=== PATIENT | female | born 1990 ===

== ENCOUNTER → 2022-08-18 11:26 | Outpatient (CLI) | payer BC, SELFPAY ==
--- NOTE | ~2022-08-18 | US_ITS ---
EXAMINATION: US OB /maternal detail DATE: 08/18/2022 12:20 INDICATION: anatomic survey. TECHNIQUE: Real-time ultrasound of the pelvis was performed. COMPARISON: None. FINDINGS: There is a single living fetus in breech presentation. The placenta is anterior, 7.0 cm from the cer vix. heart rate is 147 beats per minute (bpm). The cervical length is 3.7 cm on transabdominal images, which is normal. The amniotic fluid volume is subjectively normal. The following biometric data were obtained: Biparietal diameter (BPD): 4.4 cm; head circumference (HC): 16.7 cm; abdominal circumference (AC): 14 .5 cm; femur length (FL): 2.8 cm. These measurements are concordant. Estimated weight is 284 g +/- 43 g, which correlates with the 46th percentile when 01/10/23 is u sed as estimated date of delivery. As single measurements, these parameters are each equal to the following estimated gestational ages: BPD: 19 weeks 2 days. HC: 19 weeks 2 days. AC: 19 weeks 6 days. FL: 18 weeks 5 days. estimated gestational age based solely on measurements from this exam is 19 weeks 2 days +/- 1 weeks 2 days. The cerebral ventricles, cerebellum, cisterna magna, nuchal fold, and visualized portions of the spin e are normal. The heart is normal. The diaphragm, stomach, kidneys, and bladder are normal. There are two umbilical arteries to yield a 3-vessel cord. The cord insertion is normal. IMPRESSION: 1. Single living fetus in breech presentation. 2. Estimated weight is 284 g +/- 43 g, which correlates with the 46th percentile when 01/10/23 is used as estimated date of delivery. 3. Normal anatomic survey. Reviewed, dictated and finalized at location A. EDITOR IMPRESSION: 1. Single living fetus in breech presentation. 2. Estimated weight is 284 g +/- 43 g, which correlates with the 46th pe rcentile when 01/10/23 is used as estimated date of delivery. 3. Normal anatomic survey.
== END ==
PROVIDERS: PCP Family Medicine; Visit Provider Obstetrics & Gynecology Gynecologic Oncology
DX: Z36.9 Encounter for antenatal screening, unspecified (principal); Z3A.00 Weeks of gestation of pregnancy not specified
CPT/HCPCS: 76805